=== PATIENT | male | born 1975 | race Two or more races ===

== ENCOUNTER 2017-04-21 00:08 | Emergency (ER) | payer SELFPAY ==
[~2017-04-21] VITALS: Ht 160 cm; Wt 63.5 kg
[2017-04-21 00:38] VITALS: BP 118/67
[2017-04-21] MEDS ORDERED: ANUSOL-HC25 MG RECTAL (00:55)
--- NOTE | 2017-04-21 00:56 | Emergency Room Report ---
History of Present Illness General Chief Complaint: Gastrointestinal Bleed Source: Medical Record, Caregiver Present Illness HPI Is a 41-year-old male with a history of mental retardation. He also has constipation frequently. 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 His bright red blood outside of the stool. First-time. No trauma. No pain. No fever. Allergies: Coded Allergies: No Known Allergies (Unverified , 04/21/17) Patient History Past Medical History: see triage record, old chart reviewed Past Surgical History: other Pertinent Family History: none Social History: Denies: smoking Immunizations: UTD Reviewed Nursing Documentation: PMH: Agreed, PSxH: Agreed Nursing Documentation-PMH Past Medical History: No History, Except For Hx Dialysis: No - incontinence Review of Systems Eye: Denies: eye pain, blurred vision ENT: Denies: ear pain, nose congestion, throat swelling Respiratory: Denies: cough, shortness of breath Cardiovascular: Denies: chest pain, palpitations Gastrointestinal: Denies: abdominal pain, diarrhea, nausea, vomiting Musculoskeletal: Denies: back pain, joint pain Skin: Denies: rash Neurological: Denies: headache, numbness Endocrine: Denies: increased thirst, increased urine Hematologic/Lymphatic: Denies: easy bruising All Other Systems: negative except mentioned in HPI Physical Exam Vital Signs Date Time Temp Pulse Resp B/P (MAP) Pulse Ox O2 Delivery O2 Flow Rate FiO2 04/21/17 00:23 98.8 133 20 118/67 95 Room Air vitals with tachycardia Sp02 EP Interpretation: reviewed, normal General Appearance: well appearing, no apparent distress, alert Head: normocephalic, atraumatic Eyes: bilateral eye PERRL, bilateral eye EOMI ENT: hearing grossly normal, normal pharynx Neck: full range of motion, supple, no meningismus Respiratory: chest non-tender, lungs clear, normal breath sounds Cardiovascular #1: regular rate, rhythm, no murmur, other - Repeat heart rate 98 Gastrointestinal: normal bowel sounds, non tender, no mass, no organomegaly, no bruit, non-distended Rectal: other - Rectal with hemmorrhoid internally Musculoskeletal: back normal, gait/station normal, normal range of motion Psychiatric: mood/affect normal Skin: warm/dry Medical Decision Making Diagnostic Impression: Primary Impression: Rectal bleeding Additional Impression: Internal hemorrhoid, bleeding ER Course Patient with rectal bleeding from internal hemorrhoid. No evidence of deep bleeding. He is otherwise stable. We'll discharge home. Last Vital Signs Date Time Temp Pulse Resp B/P (MAP) Pulse Ox O2 Delivery O2 Flow Rate FiO2 04/21/17 00:23 98.8 133 20 118/67 95 Room Air Status: improved Disposition: HOME, SELF-CARE Condition: Stable Scripts Hydrocortisone Acetate* (ANUSOL-HC*) 25 Mg Supp.rect 1 SUPP RECTAL TWICE A DAY, #10 SUPP Prov: JOANN OLSEN M.D. 04/21/17 Referrals: NOT CHOSEN [facility]/,REFERRING (PCP) Additional Instructions: followup with your Dr. in 7 days. Return if symptoms worsen. Increase fluid and fibers. JOANN OLSEN M.D. Apr 21, 2017 00:56
[2017-04-21 01:01] VITALS: BP 118/67
== END 2017-04-21 01:01 | disposition home or self-care (01) ==
LOC: EMR 00:18
DX: K64.8 Other hemorrhoids (principal)
CPT/HCPCS: 99283